=== PATIENT | female | born 1975 | race African-American/Black ===

== ENCOUNTER 2016-12-18 20:36 | Inpatient (IN) | payer OTHER ==
[~2016-12-18] VITALS: Ht 157.5 cm; Wt 94.8 kg
--- NOTE | ~2016-12-18 | HC ---
[facility] [place] [address] CONSULTATION Name: ARAMIS ROSALES Room #: 411-P [facility] IN .R.#: [id number] Admission: 12/18/16 Attend Phys: Brandon Mcgee DO Discharge: Date of : 79 Report #: [id number] THIS REPORT FOR: //name// CC: Karena Mcgee DATE OF SERVICE: 12/19/2016 REASON FOR CONSULTATION: Abdominal pain. HISTORY OF PRESENT ILLNESS: The patient is a 41-year-old -[place]cu[place] female admitted through the Emergency Room with sudden onset epigastric pain. She relates that approximately 4:00 p.m., she had sudden onset of upper abdominal pain rated 6 on a scale of 1-10 with some radiation to the back. She had had an episode of emesis on the day before presentation of symptoms, but on the day of onset of pain, Wednesday12/18/2016, she had no symptoms of this nature and no pre-warning signs that pain would develop. She has noted no evidence of bleeding. She does have a history of a gastric bypass surgery performed in August 2014 with complications related to the development of an anastomotic ulcer. She may have been hospitalized or closely supervised for 3 months and lost a significant amount of weight from a preop weight of 337 to minimum postop weight of 145. Current weight 209 pounds. She relates that she did undergo a dilation, presumably of anastomotic ulcer/stricture. PAST MEDICAL HISTORY: She also has had a history of hyperthyroidism, depression, peripheral neuropathy. She has undergone previous left oophorectomy, cholecystectomy and . HOME MEDICATIONS: Synthroid 150 mcg per day, multivitamins each day. She has not required maintenance on PPI and relates that this was not recommended after healing of her ulcer. ALLERGIES: No known drug allergies. SOCIAL HISTORY: She does not smoke cigarettes or drink alcohol. She has a supportive fiance in the room with her. FAMILY HISTORY: Her mother has a history of diabetes. Her mother and her sister both have a history of diabetes. REVIEW OF SYSTEMS: Prior to gastric bypass. Weight 337 pounds with current weight of 209 pounds. She has had no significant shortness of breath, wheezing, coughing or chest pain. She relates abdominal pain in epigastrium and radiating to the left upper quadrant. She may average one bowel movement every other day [address] [address] CONSULTATION Name: ARAMIS ROSALES Kimberly Room #: 411-P [facility] IN .R.#: [id number] Admission: 12/18/16 Attend Phys: Brandon Mcgee DO Discharge: Date of : 79 Report #: [id number] with no evidence of blood in her stools. She does have peripheral neuropathy. She does not have significant arthralgias that would require use of medications and specifically denies use of NSAIDs. PHYSICAL EXAMINATION: GENERAL: She appears alert and in no acute distress at rest, afebrile. VITAL SIGNS: Blood pressure 116/75, pulse 45- 57 this morning. HEENT: No scleral icterus. NECK: Supple, without lymphadenopathy. CARDIOVASCULAR: Heart rate and rhythm regular. LUNGS: Clear to auscultation. ABDOMEN: Soft, moderately obese with no obvious hepatosplenomegaly or palpable mass. She does have mild to moderate tenderness to palpation in the epigastrium and left upper quadrant. EXTREMITIES: She has no significant peripheral edema. LABORATORY DATA: On 12/18/2016, white blood cell count 7700, hemoglobin 12.6, platelet count 308,000. A complete metabolic profile was unremarkable. Serum lipase was low at 46. Urinalysis was negative. Beta hCG negative. CT abdomen and pelvis revealed a fat containing right lower lateral abdominal pelvic wall hernia and cysts in the right kidney. IMPRESSION: 1. Epigastric pain, sudden onset, etiology unclear, but possibly related to a recurrent anastomotic ulcer. She has no clinical or radiologic evidence of acute pancreatitis. 2. Status post gastric bypass surgery 08/2014. 3. Personal history of anastomotic ulcer following gastric bypass surgery. RECOMMENDATIONS: 1. Advance to clear liquids. 2. Continue PPI. 3. She will be scheduled for EGD on 12/22/2015, but more urgently if required. <ELECTRONICALLY SIGNED> By: Yehuda Townsend MD 12/20/16 1033 [id number] Yehuda Townsend MD /nt
--- NOTE | ~2016-12-18 | P ---
[facility] [place] [address] PROCEDURE REPORT Name: ARAMIS ROSALES Room #: 411-P [facility] IN M.R.#: [id number] Admission: 12/18/16 Attend Phys: Nicho Pro DO Discharge: 12/21/16 Date of : 79 Report #: [id number] THIS REPORT FOR: //name// CC: Karena Pro BRIEF HISTORY: The patient is a 41-year-old woman with a previous history of gastric bypass for weight loss with recurrent abdominal pain, bout of nausea. She gives a history of a marginal ulcer shortly after surgery requiring endoscopic dilation at [facility]. PREOPERATIVE DIAGNOSIS: Abdominal pain, status post gastric bypass surgery. POSTOPERATIVE DIAGNOSES: 1. Abdominal pain. 2. Small hiatus hernia. 3. Surgical changes consistent with previous Ibeth-en-Y gastric bypass. MEDICATIONS: Deep sedation with propofol per Anesthesia. SPECIMEN: None. ESTIMATED BLOOD LOSS: None. PROCEDURE: EGD. FINDINGS: Prior to propofol sedation, procedure of upper endoscopy discussed with the patient as well as potential risks and its complications. She indicates she understands and desires to proceed. DESCRIPTION OF PROCEDURE: With the patient in left lateral decubitus position, Fuji video endoscope was inserted in the cervical esophagus under direct vision without difficulty. Examination of this organ through its entire length revealed normal esophageal mucosa. The squamocolumnar junction was identified and noted to be unremarkable. In the distal esophagus, is a very small about 2 cm sliding type hiatus hernia. The mucosa in the hernia was unremarkable. The scope was advanced in the gastric pouch. She had a very small gastric pouch no larger than a small lemon in terms of size. The mucosa was normal. No ulcers or erosions were seen. No retained materials were seen. The anastomosis was widely patent. There was no evidence of ulceration or stricturing. The scope was advanced down the duodenal sweep as far as possible. The Ibeth-en-Y limb could not be identified. The mucosa was normal. At that point, the scope was slowly withdrawn and careful circumferential views confirmed the above findings. The patient tolerated the procedure well. DISPOSITION: The patient with abdominal pain. I do not see evidence of ulcer or stricture. The gastric pouch is in good condition. There is no evidence of [facility] [address] [place] [address] PROCEDURE REPORT Name: ARAMIS ROSALES Kibmerly Room #: 411-P DIS IN .R.#: [id number] Admission: 12/18/16 Attend Phys: Nicho Pro DO Discharge: 12/21/16 Date of : 79 Report #: [id number] anastomotic ulcer or stricturing. Etiology of pain is not entirely clear. Considerations would include musculoskeletal versus ____ or even scars or adhesions from her previous surgery. At this point in time, we would treat symptomatically. I think a PPI is reasonable on a short term basis. I do not see the need for further GI evaluation at this point in time. By: [id number] Mayur Aggarwal MD /nt
--- NOTE | ~2016-12-18 | H ---
[facility] [place] [address] HISTORY AND PHYSICAL Name: ARAMIS ROSALES Kimberly Room #: 411-P ADM IN M.R.#: [id number] Admission: 12/18/16 Attend Phys: Brnadon Mcgee DO Discharge: Date of : 79 Report #: [id number] THIS REPORT FOR: //name// CC: Karena Mcgee DATE OF SERVICE: 12/18/2016 ATTENDING PHYSICIAN: Chan Hoffman MD. PRIMARY CARE PHYSICIAN: Karena Luna MD., at . CHIEF COMPLAINT: Epigastric pain. HISTORY OF PRESENT ILLNESS: The patient is a 41-year-old -[place] female [facility] sudden onset of epigastric pain. She says this started about 2 hours prior to arrival. She did have some vomiting yesterday, but has had none today. She described it as a sharp pain. She last had a normal bowel movement yesterday. She has not seen any blood and she has not been having any black or bloody stools. She did not see any blood in her emesis either. She does have a history of gastric bypass surgery in 2014 and a few months after her bypass, she did have a gastric ulcer in what sounds like the anastomosis site. She said she required NG tube for feeding for about a month to allow the ulcer to heal. She had been taking Prilosec for that, but she has since lost her insurance and she is no longer taking any further PPI. She was initially rating her pain 7/10 in the ER. When she received morphine, most immediately after the morphine was pushed, she had sudden increase in her pain and started crying in the ER stating her pain was 10/10. She has since calmed down and again rates her pain around 6-7/10, but she is resting more comfortably at this time. PAST MEDICAL HISTORY: Hypothyroidism, depression, neuropathy and gastric ulcer. PAST SURGICAL HISTORY: Gastric bypass in August 2014, left oophorectomy, cholecystectomy and . ALLERGIES: No known drug allergies. HOME MEDICATIONS: Synthroid 150 mcg daily and multivitamin daily. SOCIAL HISTORY: The patient denies any alcohol, tobacco or drug use. She lives at home with her fiance and her son. FAMILY HISTORY: Her mother is alive with diabetes. Her sister also has diabetes. Her maternal grandmother also had heart disease. Her father is alive and healthy. [address] [address] HISTORY AND PHYSICAL Name: ARAMIS ROSALES Kimberly Room #: 411-P [facility] IN [facility]#: [id number] Admission: 12/18/16 Attend Phys: Brandon Mcgee DO Discharge: Date of : 79 Report #: [id number] REVIEW OF SYSTEMS: The patient says she has some numbness and tingling in both feet consistent with neuropathy. She states this was due to some malnutrition she had because of her gastric bypass. She does take multiple nutritional supplements. All other 12-point review of systems was reviewed with the patient, otherwise negative unless stated in the HPI. PHYSICAL EXAMINATION: GENERAL: The patient is an alert, obese female in no acute distress. VITAL SIGNS: Temperature is 36.5, heart rate 58, respirations 18, blood pressure is 126/54, oxygen 99% on room air. HEENT: PERRLA. Sclerae are nonicteric. Oral mucosa is pink and moist. NECK: Supple, no JVD noted. CARDIOVASCULAR: Normal S1, S2. No murmurs, rubs or gallops. RESPIRATORY: Breath sounds are clear bilaterally. No wheezing or rhonchi. Breathing is nonlabored. ABDOMEN: Obese, soft, and nondistended. She does have significant epigastric pain in the left upper quadrant and epigastric areas. Bowel sounds are positive. VASCULAR: No edema noted. Pedal pulses are 2+. NEUROLOGIC: The patient is alert and oriented x 3. Speech is clear. She is moving all extremities equally. No focal weakness noted. LABORATORY DATA: WBC is 7.7, hemoglobin 12.6, platelets are 308. Sodium 141, potassium 4.2, BUN 8, creatinine 0.7. Glucose is 91. LFTs are within normal limits. Lipase is 46. UA was negative and CT of the abdomen and pelvis with contrast showed no intraperitoneal air. There is no obstruction. There is a fat containing right lower lateral abdominal and pelvic wall hernia that does not contain any bowel. There is a tiny right kidney mass suggesting a small cyst similar to prior study and there are gastric bypass postoperative changes. ASSESSMENT AND PLAN: 1. Epigastric pain. The patient does have a history of peptic ulcer disease with prior gastric ulcer. This was related to her history of gastric bypass. Since her CT of the abdomen is virtually negative, we will consult GI for possible EGD. She was given a GI cocktail in the ER as well as proton pump inhibitor. We will continue the proton pump inhibitor. We will keep her n.p.o. and gently hydrate. 2. Hypothyroidism. Check TSH level. Continue Synthroid. 3. Deep venous thrombosis prophylaxis. Place sequential compression devices. [address] [address] HISTORY AND PHYSICAL Name: ARAMIS ROSALES Room #: 411-P ADM IN M.R.#: [id number] Admission: 12/18/16 Attend Phys: Brandon Mcgee DO Discharge: Date of : 79 Report #: [id number] We will continue to follow the patient closely throughout the hospitalization and make changes based on clinical status. By: [id number] GILBERT Valle /renee
[~2016-12-18 20:36] MED LIST: CENTRUM SILVER1 EAC4; COLACE100 MG PO; CYMBALTA30 MG PO; FLEXERIL PO; KLOR-CON 1010 MEQ PO; LEVOTHYROXINE0.2 M1 PO; NAPROSYN500 MG PO; NEURONTIN600 MG PO; PERCOCET 5-3251 EACH PO; PRILOSEC OTC20 MG PO; TRAMADOL 50 MG50 MG PO
[2016-12-18 20:40] VITALS: BP 126/54
[2016-12-18 20:54] LABS: URINE BILIRUBIN NEGATIVE (Negative); URINE BLOOD NEGATIVE (Negative); URINE COLOR YELLOW; URINE GLUCOSE-RANDOM* NEGATIVE (Negative); URINE KETONES NEGATIVE (Negative); URINE NITRITE NEGATIVE (Negative); URINE PROTEIN (DIPSTICK) NEGATIVE (Negative)
[2016-12-18 21:19] LABS: BASOPHILS 0.8 % (0.0-2.0); EOSINOPHILS 1.3 % (0.0-3.0); HEMATOCRIT 37.5 % (37.0-47.0); HEMOGLOBIN 12.6 gm/dL (12.0-15.0); LYMPHOCYTES 40.7 % (24.0-44.0); MCH 30.4 pg (26.0-34.0); MCHC 33.7 g/dL (28.0-37.0); MCV 90.4 fL (80.0-100.0); MONOCYTES 5.7 % (1.0-8.0); PLATELET COUNT 308 thou/uL (150-400); POLYS 51.5 % (36.0-66.0); RBC 4.15 mil/uL (4.20-5.00); RDW 13.6 % (10.5-14.5); WBC 7.7 thou/uL (4.0-11.0)
[2016-12-18 21:29] LABS: ANION GAP 7 mmol/L (7-16); BUN 8 mg/dL (7-18); CALCIUM 8.6 mg/dL (8.5-10.1); CHLORIDE 104 mmol/L (98-107); CO2 30 mmol/L (21-32); CREATININE 0.7 mg/dL (0.6-1.0); GLUCOSE 91 mg/dL (74-106); POTASSIUM 4.2 mmol/L (3.5-5.1); SODIUM 141 mmol/L (136-145)
[2016-12-18 21:31] LABS: MANUAL DIFF NO
[2016-12-18 21:32] LABS: ALBUMIN 3.6 g/dL (3.4-5.0); ALKALINE PHOSPHATASE 89 U/L (46-116); DIRECT BILIRUBIN < 0.1 mg/dL (<0.1-0.3); SGOT 17 U/L (15-37); SGPT 17 U/L (30-65); TOTAL BILIRUBIN 0.4 mg/dL (<0.1-1.0); TOTAL PROTEIN 6.9 g/dL (6.4-8.2)
[2016-12-18] MEDS ORDERED: OMEPRAZOLE 20 M20 M1 PO (22:53)
[2016-12-18] MEDS ORDERED: ONDANSETRON HCL4 M2 PO (22:56)
[2016-12-18] MEDS ORDERED: NORCO 5-325 TA1 EACH PO (22:56)
[2016-12-18 22:58] VITALS: BP 116/53
[2016-12-18 23:42] VITALS: BP 119/67
[2016-12-19] VITALS: BP 130/72
[2016-12-19] MEDS ORDERED: LEVOTHYROXINE 0.15MG PO (00:28)
[2016-12-19 04:49] VITALS: BP 101/50
[2016-12-19 07:41] VITALS: BP 116/75
[2016-12-19 16:41] VITALS: BP 104/63
[2016-12-19 20:00] VITALS: BP 106/64
[2016-12-20 06:18] VITALS: BP 96/64
[2016-12-20 08:19] VITALS: BP 105/56
[2016-12-20 20:00] VITALS: BP 110/56
[2016-12-21 04:07] VITALS: BP 103/57
[2016-12-21 05:38] LABS: HEMOGLOBIN 11.7 gm/dL (12.0-15.0); MCH 30.6 pg (26.0-34.0); MCHC 33.5 g/dL (28.0-37.0); MCV 91.5 fL (80.0-100.0); RBC 3.82 mil/uL (4.20-5.00); RDW 13.2 % (10.5-14.5); WBC 5.3 thou/uL (4.0-11.0)
[2016-12-21 05:47] LABS: CALCIUM 8.4 mg/dL (8.5-10.1); CREATININE 0.7 mg/dL (0.6-1.0); POTASSIUM 4.1 mmol/L (3.5-5.1)
[2016-12-21 07:54] VITALS: BP 105/53
[2016-12-21] MEDS ORDERED: PROTONIX40 M1 PO (12:56)
[2016-12-21 13:11] VITALS: BP 105/53
== END 2016-12-21 14:44 | disposition home or self-care (01) | DRG 392 ==
LOC: ER 20:36 → EROBS 23:20 → 4N 23:20
PROVIDERS: Hospitalist; Nurse Practitioner
PROC: 0DJ08ZZ Inspection of Upper Intestinal Tract, Via Natural or Artificial Opening Endoscopic (ICD-10-PCS; principal; 2016-12-21)
DX: R10.13 Epigastric pain (principal); K44.9 Diaphragmatic hernia without obstruction or gangrene; F32.9 Major depressive disorder, single episode, unspecified; G62.9 Polyneuropathy, unspecified; E03.9 Hypothyroidism, unspecified; Z79.899 Other long term (current) drug therapy; E66.9 Obesity, unspecified; Z98.84 Bariatric surgery status; Z87.11 Personal history of peptic ulcer disease; Z90.49 Acquired absence of other specified parts of digestive tract; Z90.721 Acquired absence of ovaries, unilateral; Z83.3 Family history of diabetes mellitus; Z82.49 Family history of ischemic heart disease and other diseases of the circulatory system; Z68.38 Body mass index [BMI] 38.0-38.9, adult
CPT/HCPCS: 10091; 62110; 62900; 70005

== ENCOUNTER 2016-12-31 12:02 | Emergency (ER) | payer OTHER ==
[~2016-12-31] VITALS: Ht 157.5 cm; Wt 92.5 kg
[~2016-12-31 12:02] MED LIST changes: +LEVOTHYROXINE 0.15MG PO; +NORCO 5-325 TA1 EACH PO; +OMEPRAZOLE 20 M20 M1 PO; +ONDANSETRON HCL4 M2 PO; +PROTONIX40 M1 PO
[2016-12-31 12:46] LABS: URINE BILIRUBIN NEGATIVE (Negative); URINE BLOOD NEGATIVE (Negative); URINE COLOR YELLOW; URINE GLUCOSE-RANDOM* NEGATIVE (Negative); URINE KETONES NEGATIVE (Negative); URINE NITRITE NEGATIVE (Negative); URINE PROTEIN (DIPSTICK) NEGATIVE (Negative); URINE UROBILINOGEN 0.2 E.U./dl (0.2-1.0)
[2016-12-31 13:05] LABS: SSA (PROTEIN CONFIRMATORY) NEGATIVE (Negative)
[2016-12-31 13:13] LABS: ABSOLUTE NEUTROPHILS 3.8 thou/uL (1.4-8.2); BASOPHILS 1.6 % (0.0-2.0); EOSINOPHILS 1.8 % (0.0-3.0); HEMOGLOBIN 14.2 gm/dL (12.0-15.0); LYMPHOCYTES 29.7 % (24.0-44.0); MCH 30.2 pg (26.0-34.0); MCV 91.5 fL (80.0-100.0); PLATELET COUNT 270 thou/uL (150-400); POLYS 60.9 % (36.0-66.0); RBC 4.71 mil/uL (4.20-5.00); RDW 13.6 % (10.5-14.5); WBC 6.2 thou/uL (4.0-11.0)
[2016-12-31 13:16] LABS: MANUAL DIFF NO
[2016-12-31 13:24] LABS: CALCIUM 9.6 mg/dL (8.5-10.1); CREATININE 0.9 mg/dL (0.6-1.0)
[2016-12-31 13:28] LABS: ALBUMIN 4.2 g/dL (3.4-5.0); TOTAL BILIRUBIN 0.4 mg/dL (<0.1-1.0); TOTAL PROTEIN 7.9 g/dL (6.4-8.2)
[2016-12-31] MEDS ORDERED: NORCO 5-325 TA1 EACH PO (14:45)
== END 2016-12-31 15:06 | disposition home or self-care (01) ==
LOC: ER 12:02
PROVIDERS: Nurse Practitioner Family
DX: R10.13 Epigastric pain (principal); R10.12 Left upper quadrant pain; Z90.721 Acquired absence of ovaries, unilateral; Z98.84 Bariatric surgery status

== ENCOUNTER 2017-05-23 11:23 | Emergency (ER) | payer OTHER ==
[~2017-05-23] VITALS: Ht 157.5 cm; Wt 93.9 kg
[2017-05-23 11:47] LABS: URINE BILIRUBIN NEGATIVE (Negative); URINE BLOOD NEGATIVE (Negative); URINE COLOR YELLOW; URINE GLUCOSE-RANDOM* NEGATIVE (Negative); URINE KETONES NEGATIVE (Negative); URINE NITRITE NEGATIVE (Negative); URINE PROTEIN (DIPSTICK) NEGATIVE (Negative); URINE SPECIFIC GRAVITY 1.015 (1.003-1.035)
[2017-05-23 12:03] LABS: ABSOLUTE NEUTROPHILS 1.9 thou/uL (1.4-8.2); BASOPHILS 1.3 % (0.0-2.0); EOSINOPHILS 1.8 % (0.0-3.0); HEMOGLOBIN 12.1 gm/dL (12.0-15.0); LYMPHOCYTES 54.9 % (24.0-44.0); MCH 31.6 pg (26.0-34.0); MCHC 33.7 g/dL (28.0-37.0); MCV 93.8 fL (80.0-100.0); MONOCYTES 6.1 % (1.0-8.0); PLATELET COUNT 210 thou/uL (150-400); POLYS 35.9 % (36.0-66.0); RBC 3.84 mil/uL (4.20-5.00)
[2017-05-23 12:06] LABS: MANUAL DIFF NO
[2017-05-23 12:15] LABS: CALCIUM 9.1 mg/dL (8.5-10.1); POTASSIUM 3.9 mmol/L (3.5-5.1)
[2017-05-23 12:20] LABS: ALBUMIN 3.9 g/dL (3.4-5.0); TOTAL BILIRUBIN 0.7 mg/dL (<0.1-1.0); TOTAL PROTEIN 6.9 g/dL (6.4-8.2)
[2017-05-23] MEDS ORDERED: HYDROCODONE-AP1 EAC6 PO (13:55)
[2017-05-23] MEDS ORDERED: PHENERGAN 25 MG25 M1 PO (13:55)
[2017-05-23] MEDS ORDERED: PEPCID20 MG PO (13:55)
== END 2017-05-23 14:18 | disposition home or self-care (01) ==
LOC: ER 11:23
PROVIDERS: Physician Assistant
DX: R10.13 Epigastric pain (principal); R11.0 Nausea; Z90.721 Acquired absence of ovaries, unilateral; Z98.890 Other specified postprocedural states

== ENCOUNTER 2017-05-25 08:39 | Emergency (ER) | payer OTHER ==
[~2017-05-25] VITALS: Ht 157.5 cm; Wt 86.2 kg
[~2017-05-25 08:39] MED LIST changes: +HYDROCODONE-AP1 EAC6 PO; +PEPCID20 MG PO; +PHENERGAN 25 MG25 M1 PO
[2017-05-25 09:11] LABS: HEMATOCRIT 38.5 % (37.0-47.0); HEMOGLOBIN 12.8 gm/dL (12.0-15.0); MCH 31.1 pg (26.0-34.0); MCHC 33.3 g/dL (28.0-37.0); MCV 93.4 fL (80.0-100.0); RBC 4.12 mil/uL (4.20-5.00); RDW 14.1 % (10.5-14.5); WBC 4.6 thou/uL (4.0-11.0)
[2017-05-25 09:37] LABS: ANION GAP 4 mmol/L (7-16); BUN 13 mg/dL (7-18); CALCIUM 8.9 mg/dL (8.5-10.1); CHLORIDE 104 mmol/L (98-107); CO2 29 mmol/L (21-32); GLUCOSE 77 mg/dL (74-106); POTASSIUM 3.8 mmol/L (3.5-5.1); SODIUM 137 mmol/L (136-145)
[2017-05-25 09:45] LABS: ALBUMIN 3.8 g/dL (3.4-5.0); ALKALINE PHOSPHATASE 79 U/L (46-116); SGOT 31 U/L (15-37); SGPT 31 U/L (30-65); TOTAL BILIRUBIN 0.5 mg/dL (<0.1-1.0); TOTAL PROTEIN 6.8 g/dL (6.4-8.2); TROPONIN-I < 0.04 ng/mL (<0.04-0.07)
[2017-05-25] MEDS ORDERED: CARAFATE 1 GM TA1 G1 PO (10:30)
== END 2017-05-25 10:59 | disposition home or self-care (01) ==
LOC: ER 08:39
PROVIDERS: Emergency Medicine
DX: R10.13 Epigastric pain (principal); Z90.721 Acquired absence of ovaries, unilateral; Z98.890 Other specified postprocedural states

== ENCOUNTER 2019-03-31 17:56 | Emergency (ER) | payer OTHER ==
[~2019-03-31] VITALS: Ht 157.5 cm; Wt 99.8 kg
[~2019-03-31 17:56] MED LIST changes: +CARAFATE 1 GM TA1 G1 PO
[2019-03-31 19:55] LABS: ABSOLUTE NEUTROPHILS 3.9 thou/uL (1.4-8.2); BASOPHILS 0.5 % (0.0-2.0); EOSINOPHILS 1.6 % (0.0-3.0); HEMATOCRIT 38.4 % (37.0-47.0); HEMOGLOBIN 12.7 gm/dL (12.0-15.0); LYMPHOCYTES 34.5 % (24.0-44.0); MCH 31.1 pg (26.0-34.0); MCV 94.1 fL (80.0-100.0); MONOCYTES 7.2 % (1.0-8.0); PLATELET COUNT 306 thou/uL (150-400); POLYS 56.2 % (36.0-66.0); RBC 4.08 mil/uL (4.20-5.00); RDW 13.4 % (10.5-14.5); WBC 6.9 thou/uL (4.0-11.0)
[2019-03-31 20:01] LABS: ANION GAP 3 mmol/L (7-16); BUN 10 mg/dL (7-18); CALCIUM 9.1 mg/dL (8.5-10.1); CHLORIDE 103 mmol/L (98-107); CO2 30 mmol/L (21-32); CREATININE 0.7 mg/dL (0.6-1.0); GLUCOSE 91 mg/dL (74-106); POTASSIUM 4.5 mmol/L (3.5-5.1); SODIUM 136 mmol/L (136-145)
[2019-03-31 20:10] LABS: TROPONIN-I <0.06 ng/mL (<0.06)
[2019-03-31 21:18] VITALS: BP 129/82
--- NOTE | 2019-04-01 10:55 | EKG ---
[place] [address] [facility] [place] [address] ELECTROCARDIOGRAM REPORT Name: ARAMIS ROSALES Room #: [facility]#: [id number] Admission: 03/31/19 Attend Phys: Discharge: 03/31/19 Date of : 79 Report #: [id number] THIS REPORT FOR: //name// ED Test Date: 2019-03-31 Test Time: 17:59:54 Pat Name: ARAMIS ROSALES Department: Room: Gender: F Senior Php Web Developer: SARAI : 1975 Requested By: Leandro Ibrahim Order Number: [id number] MD: Maldonado Nñuez Measurements Intervals Davidson Rate: 59 P: 21 MO: 152 QRS: 11 QRSD: 102 T: 17 QT: 406 QTc: 403 Interpretive Statements Sinus rhythm Baseline wander in lead(s) V6 Compared to ECG 03/11/2016 13:55:15 T-wave abnormality no longer present Electronically Signed On 04-01-2019 10:55:26 CDT by Maldonado Nuñez [email or web address] <ELECTRONICALLY SIGNED> By: Maldonado Nuñez MD 04/01/19 1055 1759 1759 MD JOSEFINA Licona
== END 2019-03-31 21:20 | disposition home or self-care (01) ==
LOC: ER 17:56
PROVIDERS: Emergency Medicine
DX: R07.89 Other chest pain (principal); R00.2 Palpitations; Z90.721 Acquired absence of ovaries, unilateral; Z90.49 Acquired absence of other specified parts of digestive tract; Z98.890 Other specified postprocedural states

== ENCOUNTER 2020-09-30 11:08 | Emergency (ER) | payer OTHER ==
[~2020-09-30] VITALS: Ht 157.5 cm; Wt 101.2 kg
[2020-09-30 11:34] LABS: URINE BILIRUBIN NEGATIVE (Negative); URINE BLOOD 3+ (Negative); URINE CLARITY SL CLOUDY; URINE COLOR YELLOW; URINE GLUCOSE-RANDOM* NEGATIVE (Negative); URINE KETONES 1+ (Negative); URINE NITRITE-REFLEX NEGATIVE (Negative); URINE PROTEIN (DIPSTICK) NEGATIVE (Negative)
[2020-09-30 11:35] LABS: URINE LEUKOCYTES-REFLEX 2+ (Negative)
[2020-09-30 11:44] LABS: CASTS None Seen /LPF (None Seen); SQUAMOUS >10 Many /LPF (0-3); URINE WBC-REFLEX 6-15 Few /HPF (0-5)
[2020-09-30 11:45] LABS: CRYSTALS None Seen /LPF (None Seen)
[2020-09-30 12:03] LABS: ABSOLUTE NEUTROPHILS 5.2 thou/uL (1.4-8.2); BASOPHILS 0.7 % (0.0-2.0); EOSINOPHILS 2.8 % (0.0-3.0); HEMATOCRIT 41.5 % (37.0-47.0); HEMOGLOBIN 13.4 gm/dL (12.0-15.0); LYMPHOCYTES 21.5 % (24.0-44.0); MCH 29.4 pg (26.0-34.0); MCHC 32.3 g/dL (28.0-37.0); MCV 90.8 fL (80.0-100.0); MONOCYTES 5.3 % (1.0-8.0); PLATELET COUNT 296 thou/uL (150-400); POLYS 69.7 % (36.0-66.0); RBC 4.56 mil/uL (4.20-5.00); RDW 15.3 % (10.5-14.5); WBC 7.4 thou/uL (4.0-11.0)
[2020-09-30 12:05] LABS: CALCIUM 9.9 mg/dL (8.5-10.1); CREATININE 0.8 mg/dL (0.6-1.0); POTASSIUM 3.7 mmol/L (3.5-5.1)
[2020-09-30 12:10] LABS: ALBUMIN 4.4 g/dL (3.4-5.0); TOTAL BILIRUBIN 0.5 mg/dL (0.2-1.0); TOTAL PROTEIN 7.9 g/dL (6.4-8.2)
[2020-09-30] MEDS ORDERED: CARAFATE 1 GM TA1 G1 PO (15:56)
[2020-09-30] MEDS ORDERED: OMEPRAZOLE40 MG PO (15:56)
[2020-09-30] MEDS ORDERED: NORCO 10-325 T1 EACH PO (15:56)
[2020-09-30] MEDS ORDERED: KEFLEX500 M1 PO (15:56)
[2020-09-30 16:13] VITALS: BP 108/50
== END 2020-09-30 16:12 | disposition home or self-care (01) ==
LOC: ER 11:08
PROVIDERS: Physician Assistant
DX: K29.70 Gastritis, unspecified, without bleeding (principal); N39.0 Urinary tract infection, site not specified; N83.201 Unspecified ovarian cyst, right side; Z79.899 Other long term (current) drug therapy